=== PATIENT | male | born 1995 | race Caucasian/White ===

== ENCOUNTER 2017-06-23 15:47 | Emergency (ER) | payer OTHER ==
[~2017-06-23] VITALS: Ht 177.8 cm; Wt 77.1 kg
[~2017-06-23 15:47] MED LIST: CEPH250A PO; HYDACE5 PO; LORA10ER PO; ONDA4ODT MM; RXONDA4ODT MM; [UNRECOGNIZED DRUG - OTHER]
[2017-06-23] MEDS ORDERED: HYDR1TAB94 PO (17:12)
[2017-06-23] MEDS ORDERED: Amoxicillin500 MG PO (17:12)
== END 2017-06-23 18:19 | disposition home or self-care (01) ==
LOC: ER 15:47
DX: S06.0X1A Concussion with loss of consciousness of 30 minutes or less, initial encounter (principal); S02.5XXA Fracture of tooth (traumatic), initial encounter for closed fracture; S01.511A Laceration without foreign body of lip, initial encounter; V29.9XXA Motorcycle rider (driver) (passenger) injured in unspecified traffic accident, initial encounter
CPT/HCPCS: 12013; 70450; 72040; 99284

== ENCOUNTER → 2018-12-20 | Outpatient (CLI) | payer OTHER ==
[~2018-12-20] MED LIST changes: +Amoxicillin500 MG PO; +HYDR1TAB94 PO
== END | disposition home or self-care (01) ==
LOC: LAB 14:10 → LAB SHORT 14:10 → LAB FUT 12-12 13:40
DX: R11.2 Nausea with vomiting, unspecified (principal)
CPT/HCPCS: 87338

== ENCOUNTER 2020-05-03 16:58 | Emergency (ER) | payer OTHER ==
[~2020-05-03] VITALS: Ht 172.7 cm; Wt 74.8 kg
== END 2020-05-03 19:15 | disposition home or self-care (01) ==
LOC: ER 16:58
DX: S93.401A Sprain of unspecified ligament of right ankle, initial encounter (principal); V19.3XXA Pedal cyclist (driver) (passenger) injured in unspecified nontraffic accident, initial encounter; Y93.55 Activity, bike riding; Y92.331 Roller skating rink as the place of occurrence of the external cause
CPT/HCPCS: 29515; 73590; 73610; 99283-25

== ENCOUNTER 2020-06-03 16:02 | Emergency (ER) | payer OTHER ==
[~2020-06-03] VITALS: Ht 172.7 cm; Wt 79.4 kg
[2020-06-03] MEDS ORDERED: RIZATRIPTAN10 MG (16:11)
[2020-06-03 16:37] LABS: BASOPHILS ABSOLUTE AUTO 0.06 K/mm3 (0.00-0.23); BASOPHILS PERCENT AUTO 1 % (0-2); EOSINOPHILS ABSOLUTE AUTO 0.13 K/mm3 (0.00-0.68); EOSINOPHILS PERCENT AUTO 2 % (0-6); Hematocrit 48.7 % (37.0-53.0); Hemoglobin 16.7 g/dL (13.5-17.5); IMMATURE GRAN ABSOLUTE AUTO 0.02 K/mm3 (0.00-0.10); IMMATURE GRAN PERCENT AUTO 0 % (0-1); LYMPHOCYTES ABSOLUTE AUTO 2.47 K/mm3 (0.84-5.20); LYMPHOCYTES PERCENT AUTO 28 % (21-46); MONOCYTES ABSOLUTE AUTO 0.58 K/mm3 (0.16-1.47); MONOCYTES PERCENT AUTO 7 % (4-13); Mean Corpuscular HGB 28.9 pg (26.0-34.0); Mean Corpuscular HGB Conc 34.3 g/dL (31.5-36.5); Mean Corpuscular Volume 84 fL (80-100); Mean Platelet Volume 9.9 fL (9.1-12.4); NEUTROPHILS ABSOLUTE AUTO 5.47 K/mm3 (1.96-9.15); NEUTROPHILS PERCENT AUTO 63 % (41-73); Platelet Count 240 K/mm3 (150-400); RDW Coefficient Variation 11.5 % (11.7-14.2); RDW Standard Deviation 35.1 fL (35.1-46.3); Red Blood Cell Count 5.77 M/mm3 (4.30-5.90); White Blood Cell Count 8.73 K/mm3 (4.00-11.30)
[2020-06-03 16:58] LABS: Alanine Aminotransfer (ALT/SGP 27 U/L (12-78); Albumin, Blood 4.6 g/dL (3.4-5.0); Albumin/Globulin Ratio 1.2 (0.8-1.8); Alk Phos 102 U/L (50-136); Anion Gap 7 mmol/L (6-16); Aspartate Aminotrans (AST/SGOT 20 U/L (12-37); Bilirubin, Total 0.6 mg/dL (0.1-1.0); Blood Urea Nitrogen 18 mg/dL (8-24); Bun/Creatinine Ratio 18.2 (12.0-20.0); CO2, Blood 31 mmol/L (21-32); Calcium, Blood 9.9 mg/dL (8.5-10.1); Chloride, Blood 102 mmol/L (98-108); Creatinine, Blood 0.99 mg/dL (0.60-1.20); Globulin, Blood 3.8 g/dL (2.2-4.0); Glomerular Filtration Rate >60 (60-); Glucose, Blood 96 mg/dL (70-99); Sodium, Blood 140 mmol/L (136-145); Total Protein, Blood 8.4 g/dL (6.4-8.2)
[2020-06-03 17:01] LABS: International Normalized Ratio 1.06; Prothrombin Time Results 11.3 Sec (9.7-11.5)
[2020-06-03 18:19] LABS: Influenza A, PCR Negative (NEGATIVE); Influenza B, PCR Negative (NEGATIVE); Resp Syncytial Virus, PCR Negative (NEGATIVE); SARS-Cov-2 (COVID-19) PCR, MMC Negative (NEGATIVE)
== END 2020-06-03 18:40 | disposition short-term general hospital (02) ==
LOC: ER 16:02
PROVIDERS: Physician Assistant
DX: G91.1 Obstructive hydrocephalus (principal); Z79.899 Other long term (current) drug therapy; Z20.828 Contact with and (suspected) exposure to other viral communicable diseases
CPT/HCPCS: 0241U; 80053; 85025; 85610; 99284

== ENCOUNTER 2020-08-06 04:32 | Emergency (ER) | payer OTHER ==
[~2020-08-06] VITALS: Ht 172.7 cm; Wt 86.2 kg
[~2020-08-06 04:32] MED LIST changes: +RIZATRIPTAN10 MG
[2020-08-06] MEDS ORDERED: Etoposide50 MG (04:56)
[2020-08-06] MEDS ORDERED: [UNRECOGNIZED DRUG - OTHER] (04:56)
[2020-08-06] MEDS ORDERED: PROC5 PO (04:58)
[2020-08-06] MEDS ORDERED: ONDA4 PO (04:58)
[2020-08-06] MEDS ORDERED: LORA.5 PO (04:59)
[2020-08-06 06:31] LABS: BASOPHILS ABSOLUTE AUTO 0.03 K/mm3 (0.00-0.23); BASOPHILS PERCENT AUTO 1 % (0-2); EOSINOPHILS PERCENT AUTO 0 % (0-6); Hematocrit 31.6 % (37.0-53.0); Hemoglobin 10.6 g/dL (13.5-17.5); IMMATURE GRAN PERCENT AUTO 5 % (0-1); LYMPHOCYTES ABSOLUTE AUTO 1.11 K/mm3 (0.84-5.20); LYMPHOCYTES PERCENT AUTO 26 % (21-46); MONOCYTES ABSOLUTE AUTO 1.39 K/mm3 (0.16-1.47); MONOCYTES PERCENT AUTO 32 % (4-13); Mean Corpuscular HGB 29.1 pg (26.0-34.0); Mean Corpuscular HGB Conc 33.5 g/dL (31.5-36.5); Mean Corpuscular Volume 87 fL (80-100); Mean Platelet Volume 9.4 fL (9.1-12.4); NEUTROPHILS ABSOLUTE AUTO 1.58 K/mm3 (1.96-9.15); NEUTROPHILS PERCENT AUTO 37 % (41-73); NRBC ABSOLUTE 0.03 K/mm3 (0.00-0.02); NRBC Auto 0.7 /100 WBC (0.0-0.2); Platelet Count 210 K/mm3 (150-400); RDW Coefficient Variation 14.7 % (11.7-14.2); RDW Standard Deviation 42.2 fL (35.1-46.3); Red Blood Cell Count 3.64 M/mm3 (4.30-5.90); White Blood Cell Count 4.31 K/mm3 (4.00-11.30)
[2020-08-06 06:50] LABS: Alanine Aminotransfer (ALT/SGP 28 U/L (12-78); Albumin, Blood 3.3 g/dL (3.4-5.0); Alk Phos 70 U/L (50-136); Anion Gap 7 mmol/L (6-16); Aspartate Aminotrans (AST/SGOT 21 U/L (12-37); Bilirubin, Total 0.3 mg/dL (0.1-1.0); Blood Urea Nitrogen 13 mg/dL (8-24); Bun/Creatinine Ratio 15.3 (12.0-20.0); CO2, Blood 28 mmol/L (21-32); Calcium, Blood 8.9 mg/dL (8.5-10.1); Chloride, Blood 102 mmol/L (98-108); Creatinine, Blood 0.85 mg/dL (0.60-1.20); Globulin, Blood 3.4 g/dL (2.2-4.0); Glomerular Filtration Rate >60 (60-); Glucose, Blood 120 mg/dL (70-99); Potassium, Blood 3.7 mmol/L (3.5-5.5); Sodium, Blood 137 mmol/L (136-145); Total Protein, Blood 6.7 g/dL (6.4-8.2); Troponin I 0.037 ng/mL (0.000-0.040)
[2020-08-06 08:10] LABS: International Normalized Ratio 0.94; Prothrombin Time Results 10.1 Sec (9.7-11.5)
[2020-08-06 08:52] LABS: Influenza A, PCR NEGATIVE (NEGATIVE); Influenza B, PCR NEGATIVE (NEGATIVE); Resp Syncytial Virus, PCR NEGATIVE (NEGATIVE); SARS-Cov-2 (COVID-19) PCR, MMC NEGATIVE (NEGATIVE)
[2020-08-06] MEDS ORDERED: XARELTO15 MG PO (09:24)
[2020-08-06] MEDS ORDERED: XARELTO15 M1 PO (21:52)
== END 2020-08-06 09:58 | disposition home or self-care (01) ==
LOC: ER 04:32
PROVIDERS: Emergency Medicine; Pharmacist
DX: I26.99 Other pulmonary embolism without acute cor pulmonale (principal); R07.9 Chest pain, unspecified; D49.6 Neoplasm of unspecified behavior of brain; Z79.899 Other long term (current) drug therapy; Z20.822 Contact with and (suspected) exposure to COVID-19
CPT/HCPCS: 0241U; 36415; 71046; 71260; 80053; 83605; 84145; 84484; 85025; 85610; 85730; 87040; 96365-59; 96375-59; 99285-25; A9270; J1644; J3010; Q9967

== ENCOUNTER 2020-08-06 19:52 | Inpatient (IN) | payer OTHER ==
[~2020-08-06] VITALS: Ht 172.7 cm; Wt 69.0 kg
[~2020-08-06 19:52] MED LIST changes: +Etoposide50 MG; +LORA.5 PO; +ONDA4 PO; +PROC5 PO; +XARELTO15 MG PO; +[UNRECOGNIZED DRUG - OTHER]
[2020-08-06] MEDS ORDERED: XARELTO15 M1 PO (21:52)
[2020-08-07 05:12] LABS: BASOPHILS ABSOLUTE AUTO 0.06 K/mm3 (0.00-0.23); BASOPHILS PERCENT AUTO 1 % (0-2); EOSINOPHILS ABSOLUTE AUTO 0.01 K/mm3 (0.00-0.68); EOSINOPHILS PERCENT AUTO 0 % (0-6); Hematocrit 30.8 % (37.0-53.0); Hemoglobin 10.2 g/dL (13.5-17.5); IMMATURE GRAN ABSOLUTE AUTO 0.22 K/mm3 (0.00-0.10); IMMATURE GRAN PERCENT AUTO 3 % (0-1); LYMPHOCYTES ABSOLUTE AUTO 1.79 K/mm3 (0.84-5.20); LYMPHOCYTES PERCENT AUTO 23 % (21-46); MONOCYTES ABSOLUTE AUTO 2.38 K/mm3 (0.16-1.47); MONOCYTES PERCENT AUTO 30 % (4-13); Mean Corpuscular HGB 28.8 pg (26.0-34.0); Mean Corpuscular HGB Conc 33.1 g/dL (31.5-36.5); Mean Corpuscular Volume 87 fL (80-100); Mean Platelet Volume 9.2 fL (9.1-12.4); NEUTROPHILS ABSOLUTE AUTO 3.45 K/mm3 (1.96-9.15); NEUTROPHILS PERCENT AUTO 44 % (41-73); NRBC ABSOLUTE 0.03 K/mm3 (0.00-0.02); NRBC Auto 0.4 /100 WBC (0.0-0.2); Platelet Count 269 K/mm3 (150-400); RDW Standard Deviation 43.9 fL (35.1-46.3); Red Blood Cell Count 3.54 M/mm3 (4.30-5.90); White Blood Cell Count 7.91 K/mm3 (4.00-11.30)
[2020-08-07 05:27] LABS: Anion Gap 6 mmol/L (6-16); Blood Urea Nitrogen 10 mg/dL (8-24); Bun/Creatinine Ratio 9.1 (12.0-20.0); CO2, Blood 31 mmol/L (21-32); Chloride, Blood 98 mmol/L (98-108); Glomerular Filtration Rate >60 (60-); Glucose, Blood 107 mg/dL (70-99); Potassium, Blood 3.7 mmol/L (3.5-5.5); Sodium, Blood 135 mmol/L (136-145)
--- NOTE | 2020-08-07 11:35 | NUR ---
PT ARRIVED TO UNIT FROM ER VIA [facility]. PT TRANSFERED SELF TO BED WITH NO ASSIST. PT ON 1L OXYGEN VIA NC. REPORTS SOME SOB WITH EXERTION AND TAKES SHALLOW BREATHS R/T PAIN. REPORTS PAIN IN UPPER CHEST AT 3-/10. DENIES SOB WHEN LAYING IN BED. PT [id number]. ORIENTED TO UNIT AND CALL LIGHT. PT EDUCATED TO CALL IF PATIENTS BREATHING WORSENS OR PAIN LEVEL INCREASES.
--- NOTE | 2020-08-07 12:21 | NUR ---
PATIENT GAVE THIS STUDENT NURSE PERMISSION TO PROVIDE CARE TODAY 08/07/20.
--- NOTE | 2020-08-07 16:46 | NUR ---
SHIFT SUMMARY NO ACUTE CHANGES SINCE ARRIVAL TO FLOOR, PT HR AT WORK OF BREATHING INCREASE WITH EXERTION. 1L NC KEPT ON FOR PATIENT COMFORT. PT REPORTS STEADY PAIN OF 4/10 WHILE TAKING DEEP BREATHS. DENIES SOB OTHERWISE WHILE IN BED. PT VOIDING FREQUENTLY, TOLERATING PO WITH NO NAUSEA AT THIS TIME. AMBULATES WELL WITH SBY ASSISST. PAIN MANAGED PER EMAR.
[2020-08-08 04:31] LABS: BASOPHILS ABSOLUTE AUTO 0.08 K/mm3 (0.00-0.23); BASOPHILS PERCENT AUTO 1 % (0-2); EOSINOPHILS ABSOLUTE AUTO 0.01 K/mm3 (0.00-0.68); EOSINOPHILS PERCENT AUTO 0 % (0-6); Hematocrit 32.7 % (37.0-53.0); Hemoglobin 10.9 g/dL (13.5-17.5); IMMATURE GRAN ABSOLUTE AUTO 0.43 K/mm3 (0.00-0.10); IMMATURE GRAN PERCENT AUTO 5 % (0-1); LYMPHOCYTES PERCENT AUTO 21 % (21-46); MONOCYTES ABSOLUTE AUTO 2.26 K/mm3 (0.16-1.47); MONOCYTES PERCENT AUTO 24 % (4-13); Mean Corpuscular HGB 29.1 pg (26.0-34.0); Mean Corpuscular HGB Conc 33.3 g/dL (31.5-36.5); Mean Corpuscular Volume 87 fL (80-100); Mean Platelet Volume 8.9 fL (9.1-12.4); NEUTROPHILS PERCENT AUTO 50 % (41-73); NRBC ABSOLUTE 0.02 K/mm3 (0.00-0.02); NRBC Auto 0.2 /100 WBC (0.0-0.2); Platelet Count 310 K/mm3 (150-400); RDW Coefficient Variation 15.1 % (11.7-14.2); RDW Standard Deviation 45.8 fL (35.1-46.3); Red Blood Cell Count 3.74 M/mm3 (4.30-5.90); White Blood Cell Count 9.58 K/mm3 (4.00-11.30)
--- NOTE | 2020-08-08 04:37 | NUR ---
ENTRY LEVEL ACCOUNT MANAGER SUMMARY PT REMAINS TACHYCARDIC BUT HIS HR WILL ELEVATE TO THE 170'S W AMBULATION SO HE HAS BEEN ENCOURAGED TO JUST USE THE URINAL AT THE BEDSIDE WHICH HE AGREED TO. PT HAS HAD CHEST PAIN W INSPIRATION AND TX PER EMAR W RELEIF. PT HAS HAD O2 SATS >94 ON 1.5L NC HE WAS VISIBLY SOB AFTER AMBULATION. PT WAS ASYMPTOMATIC WHEN HR WAS IN THE 170'S AND DENIED FEELING LIGHT HEADED OR DIZZY. PT IS VISIBLY UPSET WHEN TALKING ABOUT HIS CONDITION AND THE POSSIBILITY OF RENMAINING ON BLOOD THINNERS FOR AN EXTENDED PERIOD OF TIME, I SPENT 45+ MINUTES TALKING W THE PT ABOUT HIS CONDITION AND CONCERNS HE APPEARED MORE AT EASE AFTERWARDS. PT HAD A BOWEL MOVEMENT THIS SHIFT. PT REPORTS THAT HE IS UNABLE TO SWALLOW PILLS THAT CANNOT BE CRUSHED. WILL REPORT TO LINSEY BARNETT, WCGAGANDEEP.
[2020-08-08 04:50] LABS: Alanine Aminotransfer (ALT/SGP 29 U/L (12-78); Albumin, Blood 3.1 g/dL (3.4-5.0); Albumin/Globulin Ratio 0.7 (0.8-1.8); Alk Phos 80 U/L (50-136); Anion Gap 5 mmol/L (6-16); Aspartate Aminotrans (AST/SGOT 19 U/L (12-37); Bilirubin, Total 0.8 mg/dL (0.1-1.0); Blood Urea Nitrogen 10 mg/dL (8-24); Bun/Creatinine Ratio 8.7 (12.0-20.0); CO2, Blood 33 mmol/L (21-32); Calcium, Blood 9.3 mg/dL (8.5-10.1); Chloride, Blood 98 mmol/L (98-108); Creatinine, Blood 1.15 mg/dL (0.60-1.20); Globulin, Blood 4.3 g/dL (2.2-4.0); Glomerular Filtration Rate >60 (60-); Glucose, Blood 106 mg/dL (70-99); Potassium, Blood 3.6 mmol/L (3.5-5.5); Sodium, Blood 136 mmol/L (136-145); Total Protein, Blood 7.4 g/dL (6.4-8.2)
--- NOTE | 2020-08-08 07:20 | NUR ---
ASSUMED CARE: PT RESTING IN BED AT THIS TIME. SINUS TACH AT 104 ON TELE AT THIS TIME. NO ACUTE NEEDS OR CONCERNS.
--- NOTE | 2020-08-08 11:47 | NUR ---
PT TAKEN TO MRI AT THIS TIME
--- NOTE | 2020-08-08 15:50 | NUR ---
Patient is sitting up in bed and alert. PAtient's fatherChris, is bedside. Patient is known to this technical report writer. Patient tells me about the events that led to his hospitalization. We talk about his cancer and how he is coping with it and what his resources are. Vidhya tells about the positive thoughts and the deep dark scary thoughts. We unpack them as we explore meaning, values, joe and being human. I normalize his experience, reinforce helpful attitudes and practices and provide pastoral claims counsel, therapeutic listening and prayer. Vidhya responds well and shows signs of increased hope and resolve. I will continue to remain available to patient and family.
--- NOTE | 2020-08-08 18:10 | NUR ---
SHIFT SUMMARY: PT'S HR HAS STAYED IN 1TEENS TODAY BUT INCREASED UP TO 130S WITH EXERTION. MEDICATIONS ORDERED TO HELP WITH THIS. SO FAR PT DOES NOT SUSTAIN THIS HR WHEN RESTING. PT'S FATHER WAS AT BEDSIDE AND WANTED TO MAKE SURE THAT DR OLSEN GETS COPY OF MRI. CC TO DR OLSEN INCLUDED ON MRI REPORT. PT'S FATHER EXPRESSED CONCERN ABOUT BEING ABLE TO AFFORD XARELTO AND STATED WHEN HE WENT TO PICK IT UP FROM PHARMACY AFTER ER PRESCRIBED IT PHARMACY SAID THEY NEEDED PRIOR AUTHORIZATION. COUPON FOR XARELTO WAS PROVIDED TO PT'S FATHER. PT REMAINS ON 1.5L NC SATTING MID 90S AND SINUS TACH ON TELE. NO ACUTE NEEDS OR CONCERNS AT THIS TIME.
[2020-08-09 04:51] LABS: BASOPHILS ABSOLUTE AUTO 0.06 K/mm3 (0.00-0.23); BASOPHILS PERCENT AUTO 1 % (0-2); EOSINOPHILS ABSOLUTE AUTO 0.02 K/mm3 (0.00-0.68); EOSINOPHILS PERCENT AUTO 0 % (0-6); Hematocrit 29.4 % (37.0-53.0); Hemoglobin 10.1 g/dL (13.5-17.5); IMMATURE GRAN ABSOLUTE AUTO 0.26 K/mm3 (0.00-0.10); IMMATURE GRAN PERCENT AUTO 4 % (0-1); LYMPHOCYTES ABSOLUTE AUTO 2.07 K/mm3 (0.84-5.20); LYMPHOCYTES PERCENT AUTO 28 % (21-46); MONOCYTES ABSOLUTE AUTO 1.57 K/mm3 (0.16-1.47); MONOCYTES PERCENT AUTO 21 % (4-13); Mean Corpuscular HGB 29.7 pg (26.0-34.0); Mean Corpuscular HGB Conc 34.4 g/dL (31.5-36.5); Mean Corpuscular Volume 87 fL (80-100); Mean Platelet Volume 9.1 fL (9.1-12.4); NEUTROPHILS ABSOLUTE AUTO 3.52 K/mm3 (1.96-9.15); NEUTROPHILS PERCENT AUTO 47 % (41-73); NRBC ABSOLUTE 0.02 K/mm3 (0.00-0.02); NRBC Auto 0.3 /100 WBC (0.0-0.2); Platelet Count 312 K/mm3 (150-400); RDW Standard Deviation 45.1 fL (35.1-46.3)
--- NOTE | 2020-08-09 05:15 | NUR ---
DIRT BIKE RACER SUMMARY PT APPEARS BETTER THIS SHIFT COMPARED TO PREVIOUS NIGHT HIS ANXIETY IS VISIBLY DECREASED AND WHILE HE IS STILL TACHYCARDIC IT WAS MUCH LOWER TONIGHT. PT HAD HR IN THE 100'S AT REST AND UP TO THE 140'S W EXERTION. O2 SATS >94 ON 1.5L NC. PT DID DEVELOP A NOSE BLEED AND WAS ON RM AIR FOR 2 HOURS WHERE HIS O2 SATS WERE 91-93. PT STILL EXPERIENCING PAIN IN HIS CHEST ON INSPIRATION AND TREATED PER EMAR. WILL REPORT TO DAYSMOFT RN, WCGAGANDEEP.
[2020-08-09] MEDS ORDERED: PROP10 PO (08:58)
[2020-08-09] MEDS ORDERED: SENN187 PO (08:58)
[2020-08-09] MEDS ORDERED: DOK100 MG PO (09:26)
[2020-08-09] MEDS ORDERED: ACET325 PO (09:26)
[2020-08-09] MEDS ORDERED: OXYC1L PO (09:28)
[2020-08-09] MEDS ORDERED: XARELTO20 MG PO (09:29)
[2020-08-09] MEDS ORDERED: MIRALAX17 GM PO (09:33)
--- NOTE | 2020-08-09 09:56 | NUR ---
ASSUMED CARE FROM RONALD RN, MORNING UPDATE PT WAS ASLEEP DURING MORNING REPORT BUT WOKE UP FOR VITALS, BREAKFAST AND MORNING MEDS. PT REPORTED SOME PAIN IN HIS SHOULDER AND LUNGS WHEN TAKING A DEEP BREATH. PT ON 1.5L O2 VIA NC. PT AWAITING POSSIBLE DISCHARGE TODAY, AND HAS COMPLETED A HOME O2 STUDY WITH [facility]. PT IN ST, HR LOW 100s. PT IS RESTING IN BED AT THIS TIME
--- NOTE | 2020-08-09 13:42 | NUR ---
DISCHARGE PT HAS BEEN APPROVED FOR DISCHARGE BY DR. PAGAN. PT HAS HAD SEVERAL MEDICATIONS SENT TO [facility] AND WAS GIVEN A WRITTEN MED FOR OXYCODONE FOR PAIN. PT WAS GIVEN INSTRUCTIONS TO WHEN TO FOLLOW UP WITH PCP AND ONCOLOGY. VS STABLE, PT ON RA AT REST. O2 HOME EVAL WAS COMPLETED WITH [facility] AND IT WAS DETERMINED THAT AT REST PT CAN SUSTAIN SAO2 ON RA, BUT WITH ACTIVITY PT NEEDS 1-2L O2. PT HAS BEEN SET UP WITH [facility] TO HAVE HOME O2 AND A TANK FOR TRANSPORTATION AVAILABLE. IV WAS REMOVED, CATH TIP INTACT, TELE REMOVED PT WILL LEAVE VIA WHEELCHAIR ACCOMPANIED BY HIS MOTHER AND RN.
[2020-08-11 06:10] LABS: DRVVT 109.9 sec (0.0-47.0); DRVVT CONFIRM 1.6 ratio (0.8-1.2); DRVVT MIX 81.3 sec (0.0-40.4); HEXAGONAL PHASE PHOSPHOLIPID 2 sec (0-11); LUPUS REFLEX INTERPRETATION Comment: (.); PT 11.7 sec (9.1-12.0); PT 1:1NP 10.9 sec (9.1-12.0); PTT-LA 55.7 sec (0.0-51.9); PTT-LA MIX 52.4 sec (0.0-48.9)
[2020-08-21 16:08] LABS: ANTI-PS/PT ABS IGG <10 Units (.); ANTI-PS/PT ABS IGM <10 Units (.); APTT 38.4 sec (.); APTT 1:1 NP 30.6 sec (.); DRVVT CONFIRM SECONDS 72.5 sec (.); DRVVT RATIO 1.7 ratio (.); DRVVT SCREEN SECONDS 138.1 sec (.); HEXAGONAL PHOSPHOLIPID NEUTRAL 0 sec (.); INR 1.2 ratio (.); PROTHROMBIN TIME 12.4 sec (.); THROMBIN TIME 13.8 sec (.)
== END 2020-08-09 14:06 | disposition home or self-care (01) | DRG 176 ==
LOC: ER 19:52 → PCU 19:53 → ERHOLD 19:53 → PCU 08-07 10:23 → ENPENDDIS 08-09 09:07 → PCU 08-09 14:06
PROVIDERS: Internal Medicine; Internal Medicine Hematology & Oncology; ADMIT Family Medicine
DX: I26.99 Other pulmonary embolism without acute cor pulmonale (principal); C72.9 Malignant neoplasm of central nervous system, unspecified; D64.9 Anemia, unspecified; R09.02 Hypoxemia; R00.0 Tachycardia, unspecified; F41.9 Anxiety disorder, unspecified; Z79.01 Long term (current) use of anticoagulants
CPT/HCPCS: 36415; 70553; 80048; 80053; 81241; 83880; 84484; 85025; 85610; 85611; 85613; 85670; 85730; 85732; 86146; 86147; 86148; 93005; 93010; 93306; 93970; 94761; 96374; 96375; 96376; 99285-25; A9270; A9579; G0378; J2405; J3010

== ENCOUNTER → 2021-04-02 | Outpatient (CLI) | payer OTHER ==
[~2021-04-02] MED LIST changes: +ACET325 PO; +DOK100 MG PO; +MIRALAX17 GM PO; +OXYC1L PO; +PROP10 PO; +SENN187 PO; +XARELTO15 M1 PO; +XARELTO20 MG PO
== END | disposition home or self-care (01) ==
LOC: LAB SHORT 08:58
DX: R07.9 Chest pain, unspecified (principal)
CPT/HCPCS: 85379

== ENCOUNTER 2021-07-07 00:14 | Emergency (ER) | payer OTHER ==
[~2021-07-07] VITALS: Ht 175.3 cm; Wt 87.1 kg
== END 2021-07-07 00:51 | disposition home or self-care (01) ==
LOC: ER 00:14
DX: S81.011A Laceration without foreign body, right knee, initial encounter (principal); Z79.899 Other long term (current) drug therapy; Z79.01 Long term (current) use of anticoagulants; W45.8XXA Other foreign body or object entering through skin, initial encounter

== ENCOUNTER 2022-11-03 19:56 | Emergency (ER) | payer OTHER ==
[~2022-11-03] VITALS: Ht 172.7 cm; Wt 101.2 kg
[2022-11-03 21:30] VITALS: BP 114/80
== END 2022-11-03 21:45 | disposition home or self-care (01) ==
LOC: ER 19:56
DX: S06.0X1A Concussion with loss of consciousness of 30 minutes or less, initial encounter (principal); V28.09XA Other motorcycle driver injured in noncollision transport accident in nontraffic accident, initial encounter; Y92.830 Public park as the place of occurrence of the external cause
CPT/HCPCS: 70450; 99284-25

== ENCOUNTER → 2023-04-07 | Outpatient (CLI) | payer MEDICARE | END | disposition home or self-care (01) | LOC: LAB SHORT 18:16 → LAB 18:16 | DX: R07.89 Other chest pain (principal) | CPT/HCPCS: 85379 ==

== ENCOUNTER → 2023-08-15 | Outpatient (CLI) | payer MEDICARE | END | disposition home or self-care (01) | LOC: LAB SHORT 13:16 → LAB 13:16 | DX: R29.818 Other symptoms and signs involving the nervous system (principal) | CPT/HCPCS: 82607 ==